=== PATIENT | male | born 1985 | race Caucasian/White ===

== ENCOUNTER → 2017-11-15 | Outpatient (CLI) | payer BC ==
--- NOTE | 2017-11-15 15:58 | Diagnostic Imaging Report ---
INDICATION: Right-sided testicular pain. FINDINGS: The right testicle measures 3.6 x 1.9 x 3.3 cm and the left testicle measures 4.7 x 2.1 x 2.9 cm. Both testes demonstrate homogeneous echotexture. No discrete testicular mass is seen. There is blood flow to both testes. No hydrocele or varicocele is identified. Epididymides are unremarkable. IMPRESSION: Unremarkable scrotal ultrasound. Dictated by: Dictated on workstation # [id number]
== END ==
LOC: RAD 08:42
PROVIDERS: ATTEND Urology
DX: N50.3 Cyst of epididymis (principal)
CPT/HCPCS: 76870